=== PATIENT | female | born 1970 | race Two or more races ===

== ENCOUNTER 2019-01-05 13:27 | Emergency (ER) | payer SELFPAY ==
[~2019-01-05] VITALS: Ht 154.9 cm; Wt 92.0 kg
[~2019-01-05 13:27] MED LIST: MTF1000T; MUPI22OI2 TOP
[2019-01-05 13:34] VITALS: BP 167/92; PULSE 78; RESP 16; Ht 154.9 cm; Wt 92.0 kg
--- NOTE | 2019-01-05 13:53 | ERD ---
ER Documentation Chief Complaint Chief Complaint R thumb lac w knife today; concerned due to hx of DM, HTN. HPI 48-year-old diabetic female is here for laceration to her right thumb. She n otes that the laceration is small but she is concerned because she is diabetic and she does not want to get infected. She is gotten a tetanus vaccination within the last 2 years. No numbness or tingling or loss of range of motion. ROS All systems reviewed and are negative except as per history of present illness. Medications Home Meds Reported Medications Metformin* (Glucophage*) 1,000 Mg Tablet, 2X DAILY 02/03/11 Allergies Allergies: Uncoded Allergies: NKDA (Allergy, 02/03/11) PMhx/Soc History of Surgery: No Anesthesia Reaction: No Hx Neurological Disorder: No Hx Respiratory Disorders: No Hx Cardiac Disorders: No Hx Psychiatric Problems: No Hx Miscellaneous Medical Probl: No Hx Alcohol Use: No Hx Substance Use: No Hx Tobacco Use: No FmHx Family History: No diabetes Physical Exam Vitals Vital Signs Date Temp Pulse Resp B/P (MAP) Pulse Ox O2 O2 Flow FiO2 Time Delivery Rate 01/05/19 98.5 78 16 167/92 98 13:34 (117) Physical Exam Const: No acute distress Head: Atraumatic Eyes: Normal Conjunctiva ENT: Normal External Ears, Nose and Mouth. Neck: Full range of motion. No meningismus. Resp: Clear to auscultation bilaterally Cardio: Regular rate and rhythm, no murmurs Hand -right Skin: Volar surface of right thumb before PIP joint there is a superficial 1.5 cm laceration, not bleeding, not gaping Compartments: Soft Sensation: Intact shoulder/pinky/middle finger/thumb web space Bones: Nontender Snuffbox: Nontender Joints: No effusion Wrist: Flex/Ext: Normal Uln/Radial deviation: Normal Pron/Supination Normal Finger: Flex/Ext: Normal Add/abd: Normal Thumb: Flex/Ext: Normal Opposition: Normal Thumbs up: Normal Procedures/MDM Patient has a small superficial laceration on her thumb secondary to knife accident in the kitchen. Because she is diabetic she is concerned about infe ction. Her tetanus vaccination is up-to-date. The laceration is very small and superficial does not require any repair. For antibiotic ointment given. Patient counseled regarding my diagnostic impression and care plan. Prior to discharge all questions answered. Pt agrees with treatment plan and understands strict return precautions. Pt is instructed to follow up with primary care provider within 24-48 hours. Precautionary instructions provided including instructions to return to the ER if not improving or for any worsening or changing symptoms or concerns. Departure Diagnosis: Primary Impression: Finger laceration Condition: Stable JAYMIE ESTES PA-C Jan 05, 2019 13:53
== END 2019-01-05 14:26 | disposition home or self-care (01) ==
LOC: FTE 13:27
DX: S61.011A Laceration without foreign body of right thumb without damage to nail, initial encounter (principal); I10 Essential (primary) hypertension; E11.9 Type 2 diabetes mellitus without complications; W26.0XXA Contact with knife, initial encounter; Y92.030 Kitchen in apartment as the place of occurrence of the external cause; Z79.84 Long term (current) use of oral hypoglycemic drugs
CPT/HCPCS: 81025; 99283